=== PATIENT | female | born 1990 | race Caucasian/White ===

== ENCOUNTER 2022-02-01 16:13 | Emergency (ER) | payer MEDICARE ==
[~2022-02-01] VITALS: Ht 165.1 cm; Wt 127.5 kg
[2022-02-01 17:54] LABS: BASO % 0.6 % (0.0-1.0); EOS % 0.6 % (1.0-4.0); HEMATOCRIT 40.7 % (37.0-47.0); LYMPH # 1.8 10*3/uL (1.3-4.4); LYMPH % 24.5 % (27.0-41.0); MEAN CELL VOLUME 92.3 fl (81.0-99.0); MEAN CORPUSCULAR HGB 30.2 pg (27.0-31.0); MEAN CORPUSCULAR HGB CONC 32.7 g/dl (33.0-37.0); MEAN PLATELET VOLUME 9.4 fl (9.6-12.3); MONO # 0.4 10*3/uL (0.1-1.0); NEUT # 4.8 10*3/uL (2.3-7.9); NEUT % 67.6 % (47.0-73.0); PLATELET COUNT AUTOMATED 226 10*3/uL (130-400); RED BLOOD COUNT 4.41 10*6/uL (4.10-5.10); WHITE BLOOD COUNT 7.1 10*3/uL (4.8-10.8)
[2022-02-01 18:11] LABS: ALKALINE PHOSPHATASE 87 U/L (45-117); BUN 12 mg/dl (7-24); CHLORIDE 111 mmol/L (98-107); CREATININE 0.75 mg/dL (0.55-1.02); POTASSIUM 4.2 mmol/L (3.5-5.1); SGOT/AST 18 IU/L (3-35); SGPT/ALT 32 U/L (12-78); SODIUM 137 mmol/L (136-145); TOTAL PROTEIN 7.2 gm/dL (6.4-8.2)
[2022-02-01 18:47] LABS: BILIRUBIN Negative (Negative); BLOOD Negative (Negative); CLARITY Turbid (Clear); COLOR Yellow (Yellow); GLUCOSE Negative (Negative); KETONE Trace (Negative); LEUKO ESTERASE Trace (Negative); NITRITE Negative (Negative); PH 7.5 (4.5-8.0); SPECIFIC GRAVITY 1.025 (1.001-1.030); UROBILINOGEN 0.2 E.U./dl (0.0-1.0)
[2022-02-01 18:54] LABS: BACTERIA 1+
[2022-02-01 18:55] LABS: URINE AMPHETAMINES < 1000 (1000ng/ml); URINE BARBITURATES < 200 (200ng/ml); URINE BENZODIAZEPINES < 200 (200ng/ml); URINE CANNABINOIDS (THC) < 50 (50ng/ml); URINE COCAINE < 300 (300ng/ml); URINE METHADONE < 300 (300ng/ml); URINE OPIATES < 300 (300ng/ml)
[2022-02-01 18:56] LABS: URINE PHENCYCLIDINE < 25 (25ng/ml)
[2022-02-01] MEDS ORDERED: ZANAFLEX4 M1 PO (19:25)
[2022-02-01] MEDS ORDERED: Meclizine25 MG PO (19:25)
[2022-02-01] MEDS ORDERED: PERCOCET 5-3251 EACH PO (19:40)
== END 2022-02-01 19:39 | disposition home or self-care (01) ==
LOC: ED 16:13
PROVIDERS: Physician Assistant
DX: R42 Dizziness and giddiness (principal); M54.50 Low back pain, unspecified; G89.29 Other chronic pain; E86.0 Dehydration; Z88.1 Allergy status to other antibiotic agents; Z88.8 Allergy status to other drugs, medicaments and biological substances; Z90.711 Acquired absence of uterus with remaining cervical stump

== ENCOUNTER 2022-08-10 12:53 | Emergency (ER) | payer MEDICARE, MEDICAID ==
[~2022-08-10 12:53] MED LIST: Meclizine25 MG PO; PERCOCET 5-3251 EACH PO; ZANAFLEX4 M1 PO
[2022-08-10 14:11] LABS: BASO # 0.1 10*3/uL (0.0-0.1); BASO % 0.6 % (0.0-1.0); EOS # 0.1 10*3/uL (0.0-0.4); EOS % 0.9 % (1.0-4.0); HEMATOCRIT 42.8 % (37.0-47.0); LYMPH # 1.9 10*3/uL (1.3-4.4); LYMPH % 24.1 % (27.0-41.0); MEAN CELL VOLUME 91.3 fl (81.0-99.0); MEAN CORPUSCULAR HGB 29.4 pg (27.0-31.0); MEAN CORPUSCULAR HGB CONC 32.2 g/dl (33.0-37.0); MEAN PLATELET VOLUME 9.5 fl (9.6-12.3); MONO # 0.4 10*3/uL (0.1-1.0); MONO % 4.9 % (3.0-9.0); NEUT # 5.3 10*3/uL (2.3-7.9); NEUT % 68.2 % (47.0-73.0); PLATELET COUNT AUTOMATED 243 10*3/uL (130-400); RED BLOOD COUNT 4.69 10*6/uL (4.10-5.10); RED CELL DISTRI WIDTH 13.3 % (0-14.5); WHITE BLOOD COUNT 7.7 10*3/uL (4.8-10.8)
[2022-08-10 14:34] LABS: ALKALINE PHOSPHATASE 92 U/L (46-116); BUN 10 mg/dl (9-23); CHLORIDE 106 mmol/L (98-107); POTASSIUM 3.5 mmol/L (3.4-5.1); SGPT/ALT 28 U/L (10-49); TOTAL PROTEIN 7.8 gm/dL (6.0-8.0)
[2022-08-10 15:32] LABS: BILIRUBIN Negative (Negative); BLOOD 1+ (Negative); CLARITY Clear (Clear); COLOR Dark Yellow (Yellow); GLUCOSE Negative (Negative); KETONE 4+ (Negative); LEUKO ESTERASE Negative (Negative); NITRITE Negative (Negative); SPECIFIC GRAVITY >= 1.030 (1.001-1.030)
[2022-08-10 15:39] LABS: URINE AMPHETAMINES Negative (1000ng/ml); URINE BARBITURATES Negative (200ng/ml); URINE BENZODIAZEPINES Negative (200ng/ml); URINE CANNABINOIDS (THC) Negative (50ng/ml); URINE COCAINE Negative (300ng/ml); URINE METHADONE Negative (300ng/ml); URINE OPIATES Negative (300ng/ml); URINE PHENCYCLIDINE Negative (25ng/ml)
[2022-08-10 15:45] LABS: MUCOUS 2+
[2022-08-10 15:46] LABS: BACTERIA 1+
[2022-08-10] MEDS ORDERED: SEROQUEL100 MG PO (19:21)
[2022-08-10] MEDS ORDERED: PRISTIQ100 MG PO (19:21)
[2022-08-10] MEDS ORDERED: WELLBUTRIN SR150 MG PO (19:22)
[2022-08-10] MEDS ORDERED: TOPAMAX50 MG PO (19:22)
[2022-08-10] MEDS ORDERED: ATIVAN1 MG PO (19:23)
[2022-08-10] MEDS ORDERED: WELLBUTRIN XL300 MG PO (19:25)
[2022-08-10] MEDS ORDERED: SPRAVATO84 MG INH (19:25)
== END 2022-08-11 11:45 ==
LOC: ED 12:53
PROVIDERS: Student in an Organized Health Care Education/Training Program
DX: F32.9 Major depressive disorder, single episode, unspecified (principal); Z88.1 Allergy status to other antibiotic agents; Z88.8 Allergy status to other drugs, medicaments and biological substances; Z90.710 Acquired absence of both cervix and uterus